=== PATIENT | male | born 1935 | race Caucasian/White ===

== ENCOUNTER 2020-12-19 14:47 | Emergency (ER) | payer MEDICARE, OTHER ==
[2020-12-19 16:39] LABS: HEMOGLOBIN 11.5 gm/dl (14.0-17.5); RED BLOOD COUNT 4.73 M/UL (4.20-5.50); WHITE BLOOD COUNT 8.9 K/UL (4.5-11.0)
[2020-12-19 17:08] LABS: BUN/CREATININE RATIO 19 (0-10)
[2020-12-19] MEDS ORDERED: CLINDAMYCIN HC300 MG PO (18:34)
== END 2020-12-19 19:20 | disposition home or self-care (01) ==
LOC: ER1 14:47
PROVIDERS: Physician Assistant
DX: L03.115 Cellulitis of right lower limb (principal); R60.0 Localized edema; R79.89 Other specified abnormal findings of blood chemistry; Z88.0 Allergy status to penicillin; I10 Essential (primary) hypertension; E78.00 Pure hypercholesterolemia, unspecified; Z79.82 Long term (current) use of aspirin
CPT/HCPCS: 71046; 80053; 81001; 82550; 82553; 83874; 84484; 85025; 93005; 93971; 96365; 99284

== ENCOUNTER 2020-12-23 10:03 | Inpatient (IN) | payer MEDICARE, OTHER ==
[~2020-12-23] VITALS: Ht 167.6 cm; Wt 74.8 kg
[~2020-12-23 10:03] MED LIST: CLINDAMYCIN HC300 MG PO
[2020-12-23 11:37] LABS: HEMOGLOBIN 11.3 gm/dl (14.0-17.5); RED BLOOD COUNT 4.71 M/UL (4.20-5.50); WHITE BLOOD COUNT 15.8 K/UL (4.5-11.0)
[2020-12-23 11:58] LABS: BUN/CREATININE RATIO 16 (0-10)
[2020-12-23] MEDS ORDERED: HYDROXYUREA500 MG PO (16:37)
[2020-12-23] MEDS ORDERED: LATANOPROST2.5 ML EYEBOTH (16:37)
[2020-12-23] MEDS ORDERED: ASPIRIN81 MG PO (16:38)
[2020-12-23] MEDS ORDERED: DAILY VITE1 EACH PO (16:38)
[2020-12-23] MEDS ORDERED: METOPROLOL TART50 MG PO (16:39)
[2020-12-23] MEDS ORDERED: AMLODIPINE BESYL5 MG PO (16:40)
[2020-12-23] MEDS ORDERED: VITAMIN D325 MC6 PO (16:41)
[2020-12-23] MEDS ORDERED: CALCIUM500 MG PO (16:43)
[2020-12-24 06:21] LABS: HEMOGLOBIN 11.4 gm/dl (14.0-17.5); RED BLOOD COUNT 4.77 M/UL (4.20-5.50)
[2020-12-24 06:28] LABS: WHITE BLOOD COUNT 10.8 K/UL (4.5-11.0)
--- NOTE | 2020-12-24 06:31 | NUR ---
NOTIFIED DR PHILIP OF CRITICAL PLATELET LEVEL OF [id number]. RECIEVED NO NEW ORDERS. WILL CONTINUE TO MONITOR.
[2020-12-24 06:46] LABS: BUN/CREATININE RATIO 22 (0-10)
[2020-12-25 08:22] LABS: HEMOGLOBIN 11.5 gm/dl (14.0-17.5); RED BLOOD COUNT 4.8 M/UL (4.20-5.50)
[2020-12-25 08:49] LABS: BUN/CREATININE RATIO 30 (0-10)
[2020-12-25 08:58] LABS: WHITE BLOOD COUNT 21.4 K/UL (4.5-11.0)
--- NOTE | 2020-12-25 10:28 | NUR ---
12/25/[address] LOCKETT NOTIFIED PER DR ESTRELLA, MARTY TO CONTINUE DIAMOND AND PUT ON HIS LIST WILL SEE HIM TOMORROW
[2020-12-25] MEDS ORDERED: PREDNISONE 20 M20 MG PO (11:55)
[2020-12-25] MEDS ORDERED: FAMOTIDINE20 MG PO (11:55)
[2020-12-25 16:10] LABS: FINAL INTERPRETATION Negative (.); HIV 1 AB Negative (Negative); HIV 2 AB Negative (Negative)
[2020-12-26 06:10] LABS: HBSAG SCREEN Negative (Negative); HEP A AB, IGM Negative (Negative); HEP B CORE AB, IGM Negative (Negative); HEP C VIRUS AB <0.1 (0.0-0.9)
[2020-12-26 07:46] LABS: HEMOGLOBIN 11.5 gm/dl (14.0-17.5); RED BLOOD COUNT 4.88 M/UL (4.20-5.50); WHITE BLOOD COUNT 20.4 K/UL (4.5-11.0)
[2020-12-26 08:01] LABS: BUN/CREATININE RATIO 29 (0-10)
[2020-12-26] MEDS ORDERED: HYDROXYUREA500 MG PO (16:56)
[2020-12-26] MEDS ORDERED: FOLIC ACID 1 MG1 MG PO (16:56)
== END 2020-12-26 18:12 | disposition home or self-care (01) | DRG 815 ==
LOC: ER1 10:03 → MED SURG 4 13:15 → CDU 13:15 → MED SURG 4 15:35
PROVIDERS: Internal Medicine; Physician Assistant; Registered Nurse; ADMIT Internal Medicine
DX: D47.3 Essential (hemorrhagic) thrombocythemia (principal); I74.5 Embolism and thrombosis of iliac artery; L27.0 Generalized skin eruption due to drugs and medicaments taken internally; I71.4 Abdominal aortic aneurysm, without rupture; Z96.653 Presence of artificial knee joint, bilateral; E78.5 Hyperlipidemia, unspecified; H35.30 Unspecified macular degeneration; I10 Essential (primary) hypertension; I73.9 Peripheral vascular disease, unspecified; Z88.0 Allergy status to penicillin
CPT/HCPCS: 36415; 71045; 80048; 80053; 80074; 81001; 81270; 82595; 83605; 83615; 84550; 85025; 85610; 85652; 85730; 86140; 86701; 86702; 87040; 93925; 96374; 99285; J0875; J1200; J1644; J2920; Q9967; U0002

== ENCOUNTER → 2021-04-06 | Outpatient (CLI) | payer MEDICARE ==
[~2021-04-06] MED LIST changes: +AMLODIPINE BESYL5 MG PO; +ASPIRIN81 MG PO; +CALCIUM500 MG PO; +DAILY VITE1 EACH PO; +FAMOTIDINE20 MG PO; +FOLIC ACID 1 MG1 MG PO; +HYDROXYUREA500 MG PO; +LATANOPROST2.5 ML EYEBOTH; +METOPROLOL TART50 MG PO; +PREDNISONE 20 M20 MG PO; +VITAMIN D325 MC6 PO
== END ==
LOC: US 08:53
DX: I79.0 Aneurysm of aorta in diseases classified elsewhere (principal); I71.4 Abdominal aortic aneurysm, without rupture
CPT/HCPCS: 93979

== ENCOUNTER → 2021-08-21 | Outpatient (CLI) | payer MEDICARE | LOC: CT 08:27 | DX: R31.29 Other microscopic hematuria (principal); N32.89 Other specified disorders of bladder; N40.1 Benign prostatic hyperplasia with lower urinary tract symptoms | CPT/HCPCS: Q9967 ==

== ENCOUNTER → 2022-06-12 | Outpatient (CLI) | payer MEDICARE | LOC: NM 08:10 | DX: C61 Malignant neoplasm of prostate (principal) | CPT/HCPCS: 78306; A9503 ==